=== PATIENT | female | born 1990 | race Caucasian/White ===

== ENCOUNTER 2020-03-24 18:10 | Observation (INO) | payer BC, SELFPAY ==
[2020-03-24 18:12] VITALS: BP 158/97; PULSE 77; RESP 19; TEMP 37.6; O2SAT 100; BMI 22.6
--- NOTE | 2020-03-24 18:54 | CT_ITS ---
PROCEDURE: CT ABDOMEN PELVIS WO CON CLINICAL INDICATION: abdominal pain, hx pancreatitis / pyelo Left flank pain with nausea vomiting and hematuria COMPARISON: No exams were available for comparison TECHNIQUE: Axial images obtained with sagittal and coronal reformats. All CT scans at the facility use one or more dose reduction, viz: automated exposure control, ma/kV adjustment per patient size (including targeted exams where dose is matched to indication, i.e. head), or iterative reconstruction technique. FINDINGS: LOWER THORAX: No acute finding ABDOMEN & PELVIS: Status post cholecystectomy. The liver, spleen, adrenal glands, and pancreas have an unremarkable appearance. No renal or ureteral calculi. There is mild prominence of the renal pelves on both sides. This is slightly greater on the right. There is a small supraumbilical hernia containing fat. Prior appendectomy. Nonspecific mild thickening of the urinary bladder wall. Prior hysterectomy. There is mild thickening versus nondistention of the transverse and descending colon and sigmoid colon. No significant free fluid. No acute bony findings. IMPRESSION: 1. Mild wall thickening of the distal transverse and descending and sigmoid colon. This could be due to nondistention or colitis. 2. There is mild urinary bladder wall thickening which may be seen with incomplete distension, chronic outflow obstruction, or cystitis.. 3. Small supraumbilical hernia containing fat Dictated by: Go Reyna MD 03/25/2020 06:34 Go Reyna MD in [place] 03/25/2020 06:34
--- NOTE | 2020-03-24 18:57 | HMH.EDGENADL ---
ED Disposition Condition on Discharge: Good - Critical Care Critical Care Time: No <Domenica Osman - Last Filed: 03/24/20 20:03> <Taz Soria - Last Filed: 03/24/20 20:31> Clinical Impression: Colitis, Neurogenic bladder Abdominal pain Qualifiers: Abdominal location: left lower quadrant Qualified Code(s): R10.32 - Left lower quadrant pain Disposition: Admitted as Observation Instructions: DI for Acute Abdomen Referrals: Provider,Referral, MD [Primary Care Provider] - Attestation: On 03/24/20, the high probability of a clinically significant, sudden or life threatening deterioration of the following system(s) required my full and direct attention, intervention and personal management. The time I documented below is in addition to time spent performing reported procedures but includes the following listed in this critical care notation. Medical Decision Making - Casey Inquiry Pt receiving controlled substance: No - Lab Data Result diagrams: 03/24/20 19:08 03/24/20 19:08 <Domenica Osman - Last Filed: 03/24/20 20:03> - Lab Data Lab results reviewed: Yes: I reviewed the patient's lab results. Result diagrams: 03/24/20 19:08 03/24/20 19:08 - CT Data CT Scan: Abdomen, Pelvis Time Received: 20:[address] Reviewed: Yes: I have viewed the radiologist's interpretation Preliminary Findings: Abnormal (colitis ) <Taz Soria - Last Filed: 03/24/20 20:31> Vital Signs: 03/24/20 18:12 Temperature 99.6 F Temperature Source Oral Pulse Rate [Left Radial] 77 Respiratory Rate 19 Blood Pressure [Right Arm] 158/97 H Blood Pressure Mean [Right Arm] 117 Blood Pressure Source [Right Arm] Automatic Cuff Blood Pressure Position [Right Arm] Sitting 02 Sat by Pulse Oximetry 100 Oxygen Delivery Method Room Air - Lab Data Lab Results 03/24/20 19:00: Urine Color Lizz, Urine Appearance Turbid, Urine pH 8.5, Ur Specific [place] 1.015, Urine Protein 2+, Urine Glucose (UA) Negative, Urine Ketones Negative, Urine Blood 3+, Urine Nitrate Negative, Urine Bilirubin Negative, Urine Urobilinogen 0.2, Ur Leukocyte Esterase Negative, Urine RBC Tntc, Urine WBC Occasional, Ur Squamous Epith Cells 3-5, Urine Bacteria 2+ 09/22/20 19:08: WBC 11.6 H, RBC 3.97 L, Hgb 11.4 L, Hct 34.3 L, MCV 86.3, MCH 28.6, MCHC 33.1, RDW 16.4, Plt Count 381, MPV 8.0, Neut % (Auto) 90.2 H, Lymph % (Auto) 8.0 L, [place] % (Auto) 1.0 L, Eos % (Auto) 0.6, Baso % (Auto) 0.2, Neut # (Auto) 10.4 H, Lymph # (Auto) 0.9, [place] # (Auto) 0.1, Eos # (Auto) 0.1, Baso # (Auto) 0.0, Total Counted 100, Neutrophils % (Manual) 92 H, Lymphocytes % (Manual) 7 L, Monocytes % (Manual) 1 L, Platelet Estimate Normal, RBC Morphology Normal 03/24/20 19:08: Sodium 141, Potassium 3.9, Chloride 107, Carbon Dioxide 18 L, Anion Gap 19.9 H, BUN 10, Creatinine 0.70, Estimated Creat Clear 118, Estimated GFR 98, Est GFR ( Amer) 119, Glucose 159 H, Calcium 9.8, Total Bilirubin 0.4, AST 55 H, ALT 62, Alkaline Phosphatase 74, Total Protein 7.7, Albumin 4.5, Globulin 3.2, Albumin/Globulin Ratio 1.4, Lipase 234 03/24/20 19:08: Serum HCG, Qual Negative Orders (Tests/Meds): ED MEDICATIONS Generic Name Dose Route Start Last Admin Trade Name [place] PRN Reason Stop Dose Admin Lactated Ringer's 1,000 mls @ 999 mls/hr 03/24/20 18:45 03/24/20 19:09 Lactated Ringer's 1000 Ml Bag IV 03/24/20 19:45 999 mls/hr .Q1H1M GERARDO Administration Levofloxacin/Dextrose 500 mg in 100 mls @ 100 mls/hr 03/24/20 20:30 Levaquin 500mg/100ml Premix IV 04/07/20 20:29 Q24H GERARDO Protocol Metronidazole 500 mg in 100 mls @ 100 mls/hr 03/24/20 20:30 Flagyl 500mg/100ml Ivpb IV 04/07/20 20:29 Q8H GERARDO Protocol Discontinued Medications Generic Name Dose Route Start Last Admin Trade Name Freq PRN Reason Stop Dose Admin Hydromorphone HCl 1 mg 03/24/20 20:22 Dilaudid 2mg/Ml Syringe IV 03/24/20 20:23 ONCE ONE Levofloxacin 500 mg 03/24/20 20:20
[2020-03-24 19:08] LABS: Microscopic, Urine URINE MICROSCOPIC (MICROSCOPIC)
[2020-03-24 19:10] LABS: Appearance,Urine TURBID (Clear); Bilirubin,Urine Negative (Negative); Blood, Urine 3+ (Negative); Color,Urine AMBER (Yellow); Glucose,Urine (UA) Negative (Negative); Ketones,Urine Negative (Negative); Leukocyte Esterase,Urine Negative (Negative); Nitrate,Urine Negative (Negative); PH,Urine 8.5 (5.0-8.5); Protein,Urine 2+ (Negative); Specific Gravity, Urine 1.015 (1.005-1.030); Urobilinogen,Urine 0.2 EU/dl (0.2)
[2020-03-24 19:19] LABS: Basophils % 0.2 % (0.1-2.0); Eosinophils # 0.1 K/mm3 (0.0-0.4); Eosinophils % 0.6 % (0.1-12.0); Hematocrit 34.3 % (37.0-47.0); Hemoglobin 11.4 g/dL (12.2-16.2); Lymphocytes # 0.9 K/mm3 (0.7-4.5); Mean Corpuscular HGB Conc 33.1 g/dL (31.8-35.4); Mean Corpuscular Hemoglobin 28.6 pg (27.0-31.2); Mean Corpuscular Volume 86.3 fl (81-99); Monocytes # 0.1 K/mm3 (0.1-1.0); Neutrophils # 10.4 K/mm3 (1.8-7.8); Neutrophils % 90.2 % (37.0-80.0); Platelet Count 381 K/mm3 (142-424); Red Blood Count 3.97 M/mm3 (4.20-5.40); Red Cell Distribution Width 16.4 % (11.5-17.5); White Blood Count 11.6 K/mm3 (4.8-10.8)
[2020-03-24 19:22] LABS: MANUAL DIFFERENTIAL MANUAL DIFFERENTIAL (MANUAL DIFF)
[2020-03-24 19:27] LABS: Chloride 107 mmol/L (98-107); Potassium 3.9 mmoL/L (3.5-5.1); Sodium 141 mmol/L (136-145)
[2020-03-24 19:27] LABS: Bacteria,Urine 2+ /lpf; RBC,Urine TNTC #/hpf (0-3); WBC,Urine Occasional #/hpf (0-3)
[2020-03-24 19:29] LABS: Alanine Aminotransferase 62 U/L (12-78); Aspartate Amino Transferase 55 U/L (14-36); Blood Urea Nitrogen 10 mg/dl (7-17); Creatinine Clearance Estimated 118 mL/min (50-200); Estimated Glomerular Filt Rate 98 ml/min (>60); GFR (African American) 119 ML/MIN (>60)
[2020-03-24 19:30] LABS: Albumin Level 4.5 g/dl (3.5-5.0); Albumin/Globulin Ratio 1.4 (1.1-1.8); Alkaline Phosphatase 74 U/L (38-126); Anion Gap 19.9 mEq/L (5-15); Bilirubin,Total 0.4 mg/dl (0.2-1.3); Calcium 9.8 mg/dl (8.4-10.2); Carbon Dioxide 18 mmol/L (22.0-30.0); Globulin 3.2 g/dL (1.3-3.2); Glucose 159 mg/dl (74-100); Lipase 234 U/L (23-300); Total Protein,Serum 7.7 g/dl (6.3-8.2)
[2020-03-24 19:41] LABS: Lymphocytes % 7 % (10-50); Monocytes % 1 % (2-9); Neutrophils % 92 % (42-76); Platelet Estimate Normal; RBC Morphology Normal; Total Cells Counted 100
[2020-03-24 20:12] LABS: HCG Qualitative, Serum Negative (Negative)
[2020-03-24 20:27] LABS: C-Reactive Protein 6.3 mg/L (0-4)
[2020-03-24 20:40] LABS: Erythrocyte Sedimentation Rate 18 mm/hr (0-20)
[2020-03-24 20:59] LABS: Coronavirus 19 IgG Antibody Negative (Negative); Coronavirus 19 IgM Antibody Negative (Negative)
--- NOTE | 2020-03-24 21:53 | PC.NURSE ---
PT ARRIVED TO THE FLOOR VIA W/C FROM ED W/STAFF AT 2554
[2020-03-24 21:54] VITALS: BP 145/91; PULSE 82; RESP 16; TEMP 37.2; O2SAT 99
[2020-03-24 22:23] VITALS: BP 123/87; PULSE 87; RESP 19; TEMP 37.3; O2SAT 96; BMI 28.5
--- NOTE | 2020-03-25 01:30 | PC.NURSE ---
UPON ADMISSION PT HAS HAD C/O LUQ ABDOMINAL PAIN THAT RADIATES TO BACK AND NAUSEA. MEDICATED PT PER AUG WITH PAIN MEDICATION PT REPORTED TOLERABLE PAIN RELIEF FOR A BRIEF PERIOD BUT PAIN IS COMING BACK. PT REQUESTED ADDITIONAL PAIN MEDICATION BUT REFUSED ANY PO MEDICATIONS R/T NAUSEA. ALSO MEDICATED PT WITH ZOFRAN PER AUG AND PT REPORTED RELIEF OF NAUSEA FOR A BRIEF PERIOD BUT IT'S STARTING TO COME BACK. NOTIFIED GRINDER SET UP OPERATOR SURFACE MD OF COMPLAINTS AND REQUESTS FOR ADDITIONAL MEDICATIONS FOR RELIEF, MD GAVE NO NEW ORDERS. ABDOMEN NONDISTENDED, HYPERACTIVE BOWEL SOUNDS AUSCULTATED, TENDERNESS NOTED PER PALPATION OF ABDOMINAL QUADS. UNWITTNESSED EMESIS REPORTED PER PT. PT HAS OWN SUPPLIES AT BEDSIDE FOR SELF CATHETERIZATION, PROVIDED WITH WIPES FOR CLEANING PRIOR TO CATHETERIZATION. CARE TRANSFERRED TO Darcy PRICE RN AT 0130. VSS. WILL CONTINUE TO MONITOR.
[2020-03-25 04:00] VITALS: BP 113/71; PULSE 85; RESP 18; TEMP 36.9; O2SAT 97
[2020-03-25 05:00] VITALS: BMI 28.5
--- NOTE | 2020-03-25 05:23 | PC.NURSE ---
0300 pt rang out for pain meds, is still complaining of nausea, pt stated concerns that her plan of care is ineffective, states that her whole point in her staying was to get in control of pain and nausea and be able to take her PO medications and she feels like the nausea isn't being taken care of with zofran, pt stated she wanted phenergan, labor conciliator notified, no new orders received, Neris, RN at bedside with this nurse, talked to pt about getting the pain meds, trying to rest the rest of the night and talking to dr in the morning, pt satisfied with conversation and resting in bed after conversation
--- NOTE | 2020-03-25 05:29 | PC.NURSE ---
shift summary, no acute changes since prior nurse's assessment, pt has rested in bed t/o rest of shift, did self cath one time with 150 mL of urine, pt states urine is dark yellow and cloudy but dumped it before showing to this nurse, pt stated that the nausea was better and was able to keep Keppra down, remains at bedside,
[2020-03-25 07:05] LABS: Basophils % 0.1 % (0.1-2.0); Eosinophils # 0.1 K/mm3 (0.0-0.4); Eosinophils % 0.7 % (0.1-12.0); Hematocrit 32.8 % (37.0-47.0); Hemoglobin 10.6 g/dL (12.2-16.2); Lymphocytes # 1.3 K/mm3 (0.7-4.5); Lymphocytes % 11.5 % (10-50); Mean Corpuscular HGB Conc 32.4 g/dL (31.8-35.4); Mean Corpuscular Hemoglobin 28.9 pg (27.0-31.2); Mean Corpuscular Volume 89.2 fl (81-99); Mean Platelet Volume 7.9 fl (7.4-10.4); Monocytes # 0.2 K/mm3 (0.1-1.0); Monocytes % 2.1 % (1.7-9.3); Neutrophils # 9.4 K/mm3 (1.8-7.8); Neutrophils % 85.6 % (37.0-80.0); Platelet Count 336 K/mm3 (142-424); Red Blood Count 3.68 M/mm3 (4.20-5.40); Red Cell Distribution Width 16.4 % (11.5-17.5)
[2020-03-25 07:09] LABS: MANUAL DIFFERENTIAL MANUAL DIFFERENTIAL (MANUAL DIFF)
--- NOTE | 2020-03-25 07:10 | PC.NURSE ---
pt states she has had 2 episodes of diarrhea at 0615, hat placed in bathroom with specimen cup, contact enteric precaution sign placed on door
[2020-03-25 07:11] LABS: Chloride 105 mmol/L (98-107)
[2020-03-25 07:12] LABS: Potassium 4.3 mmoL/L (3.5-5.1); Sodium 140 mmol/L (136-145)
[2020-03-25 07:15] LABS: Anion Gap 15.3 mEq/L (5-15); Blood Urea Nitrogen 9 mg/dl (7-17); Calcium 9.2 mg/dl (8.4-10.2); Carbon Dioxide 24 mmol/L (22.0-30.0); Creatinine Clearance Estimated 196 mL/min (50-200); Estimated Glomerular Filt Rate 117 ml/min (>60); GFR (African American) 142 ML/MIN (>60); Glucose 170 mg/dl (74-100)
[2020-03-25 08:00] VITALS: BP 119/76; PULSE 81; RESP 18; TEMP 36.7; O2SAT 98
[2020-03-25 08:15] LABS: Lymphocytes % 8 % (10-50); Monocytes % 4 % (2-9); Neutrophils % 85 % (42-76); Platelet Estimate Normal; RBC Morphology Normal; Total Cells Counted 100
--- NOTE | 2020-03-25 08:16 | HMH.PHAVTE ---
[facility] Pharmacy VTE Monitoring - Patient Demographics Admission date: 03/25/20 Report Date: 03/25/20 Time: 08:16 Allergies/Adverse Reactions: Patient Allergies acetaminophen [From Tylenol-Codeine #3] Allergy (Severe, Verified 03/24/20 23:47) Anaphylaxis codeine [From Tylenol-Codeine #3] Allergy (Severe, Verified 03/24/20 23:47) Anaphylaxis dicyclomine [From Bentyl] Allergy (Severe, Verified 03/24/20 23:47) Anaphylaxis NSAIDS (Non-Steroidal Anti-Inflamma Allergy (Severe, Verified 03/24/20 23:47) Anaphylaxis vancomycin Allergy (Severe, Verified 03/24/20 23:47) Anaphylaxis Iodinated Contrast Media Allergy (Mild, Verified 03/24/20 23:47) metoclopramide [From Reglan] Adverse Reaction (Mild, Verified 03/24/20 23:47) Irritable prochlorperazine [From Compazine] Adverse Reaction (Mild, Verified 03/24/20 23:47) Irritable coconut oil Adverse Reaction (Verified 03/24/20 23:47) Anaphylaxis ketorolac [From Toradol] Adverse Reaction (Verified 03/24/20 23:47) Anaphylaxis Height: 1.78 m Weight: 90.463 kg Patient Problems: Current Active Problems Abdominal pain (Acute) Colitis (Acute) Neurogenic bladder (Acute) - VTE Risk Labs: VTE Related Lab Results Hgb 10.6 g/dL (12.2-16.2) L 03/25/20 06:47 Hct 32.8 % (37.0-47.0) L 03/25/20 06:47 Plt Count 336 K/mm3 (142-424) 03/25/20 06:47 BUN 9 mg/dl (7-17) 03/25/20 06:47 Creatinine 0.60 mg/dl (0.52-1.04) 03/25/20 06:47 Estimated Creat Clear 196 mL/min (50-200) 03/25/20 06:47 Was VTE Risk Assessment Performed: Yes VTE Score: 0 VTE Risk Level: Very Low Risk Clinical Trial Participant: No - Prophylaxis VTE Prophylaxis Ordered?: Yes Types of VTE Prophylaxis: TEDS Knee High
--- NOTE | 2020-03-25 09:33 | PC.NURSE ---
late entry: stool specimen obtained @ 0845 and sent to lab
--- NOTE | 2020-03-25 10:42 | HMH.PHAINT ---
HOME MEDICATION RECONCILIATION COMPLETED USING LIST FROM [facility].
[2020-03-25 16:00] VITALS: BP 108/64; PULSE 68; RESP 16; TEMP 36.8; O2SAT 99
[2020-03-25 16:39] LABS: Adenovirus F 40/41, stool Not Detected (NotDetected); Astrovirus Not Detected (NotDetected); Campylobacter Not Detected (NotDetected); Cryptosporidium Not Detected (NotDetected); Cyclospora Cayetanesis Not Detected (NotDetected); Entamoeba histolytica Not Detected (NotDetected); Enteroaggregative E coli Not Detected (NotDetected); Enteropathogenic E coli Not Detected (NotDetected); Enterotoxigenic E coli Not Detected (NotDetected); Giardia lamblia Not Detected (NotDetected); Norovirus Not Detected (NotDetected); Plesimonas Shigalloides, PCR Not Detected (NotDetected); Rotavirus A Not Detected (NotDetected); Salmonella, PCR Not Detected (NotDetected); Sapovirus Not Detected (NotDetected); Shiga-like toxin E coli Not Detected (NotDetected); Shigella Enterovasive E coli Not Detected (NotDetected); Vibrio Cholerae Not Detected (NotDetected); Vibrio, PCR Not Detected (NotDetected); Yersinia Entercolitica, PCR Not Detected (NotDetected)
--- NOTE | 2020-03-25 18:18 | HMH.HPDC ---
General - General Admission date:: 03/24/20 Discharge date: 03/25/20 *Admission Date: 03/25/20 *Chief complaint: abd pain *History of present illness: 29 yr old male who presents to the ED with LLQ/epigastric and left flank pain. She states this has been going on for 1-2 days with hematuria and N/V. No fevers, chest pain or shortness of breath. Pt reports she had kidney stones in the past and says this feels similar.Pt reports a history of pancreatitis, pyelonephritis, neurogenic bladder after hysterectomy due to cervical/endometrial cancer. Pt admitted for evaluation for colitis. [facility] History I have reviewed the patient's past medical history: Yes Medical History: Reports:: MRSA (Heart.) Denies:: Cancer, Diabetes Mellitus Type 1, Diabetes Mellitus Type 2 *Have you ever received a pneumonia vaccine?: No *Have you received a flu vaccine this season?: No Laterality Cases: Right: Other Other Surgeries: Yes: Appendectomy, Cholecystectomy, Hernia Repair (Hernia mesh repair.), Hysterectomy-Total, Other (3 L rotator cuff repairs, right knee ACLS repair..) Amputation: No Fractures: No - *Social History Last grade of school completed: Some college Smoking Status: Former smoker Tobacco Type: e-cigarettes # Packs/Day (cigarettes): 1 Alcohol Intake: never Alcohol Intake Frequency:: holidays/special occasions only *Occupational Status:: unemployed *Travel in the last 8 weeks: None Family Hx:: Cancer, Diabetes, Heart Attack, Hyperlipidemia, Hypertension, Thyroid Disorder Review of Systems - Review of Systems Review of systems:: pertinent systems reviewed and negative unless documented below - Constitutional Reports fatigue, Reports weakness, Denies body ache(s), Denies fever(s) - Eyes Denies blurry vision - ENT Denies bleeding gums, Denies sinus pain - *Cardiovascular Denies chest pain at rest - *Respiratory Denies chest congestion, Denies coughing up blood - *Gastrointestinal Reports abdominal pain, Reports cramping, Reports nausea, Reports vomiting, Denies loose stools - *Genitourinary Denies difficulty urinating, Denies urinary incontinence, Denies urinary urgency - *Musculoskeletal Denies joint pain - Integumentary/Breasts Denies bleeding lesions, Denies rash - *Neurologic Denies abnormal hearing, Denies headache(s) - Psychiatric Denies lack of enjoyment - Endocrine Denies excessive sweating - Hematologic/Lymphatic Denies enlarged lymph nodes - Allergic/Immunologic Denies itchy eyes Exam Vital signs and Labs for Last 24 Hours: Temp Pulse Resp BP Pulse Ox 98.3 F 68 16 108/64 L 99 03/25/20 16:00 03/25/20 16:00 03/25/20 16:00 03/25/20 16:00 03/25/20 16:00 Laboratory Results - last 24 hr 03/24/20 19:00: Urine Color Lizz, Urine Appearance Turbid, Urine pH 8.5, Ur Specific [place] 1.015, Urine Protein 2+, Urine Glucose (UA) Negative, Urine Ketones Negative, Urine Blood 3+, Urine Nitrate Negative, Urine Bilirubin Negative, Urine Urobilinogen 0.2, Ur Leukocyte Esterase Negative, Urine RBC Tntc, Urine WBC Occasional, Ur Squamous Epith Cells 3-5, Urine Bacteria 2+ 03/24/20 19:08: WBC 11.6 H, RBC 3.97 L, Hgb 11.4 L, Hct 34.3 L, MCV 86.3, MCH 28.6, MCHC 33.1, RDW 16.4, Plt Count 381, MPV 8.0, Neut % (Auto) 90.2 H, Lymph % (Auto) 8.0 L, [place] % (Auto) 1.0 L, Eos % (Auto) 0.6, Baso % (Auto) 0.2, Neut # (Auto) 10.4 H, Lymph # (Auto) 0.9, [place] # (Auto) 0.1, Eos # (Auto) 0.1, Baso # (Auto) 0.0, Total Counted 100, Neutrophils % (Manual) 92 H, Lymphocytes % (Manual) 7 L, Monocytes % (Manual) 1 L, Platelet Estimate Normal, RBC Morphology Normal 03/24/20 19:08: Sodium 141, Potassium 3.9, Chloride 107, Carbon Dioxide 18 L, Anion Gap 19.9 H, BUN 10, Creatinine 0.70, Estimated Creat Clear 118, Estimated GFR 98, Est GFR ( Amer) 119, Glucose 159 H, Calcium 9.8, Total Bilirubin 0.4, AST 55 H, ALT 62, Alkaline Phosphatase 74, Total Protein 7.7, Albumin 4.5, Globulin 3.2, Albumin/Globulin Ratio 1.4, Lipase 234
[2020-03-25 18:56] LABS: Clostridium Difficile A/B, PCR Detected (NotDetected)
--- NOTE | 2020-03-25 18:57 | INFXCTL.NOTE ---
received call from lab that pt has cdiff. Notified Dr. Soria.
== END 2020-03-25 19:02 | disposition home or self-care (01) ==
LOC: ER 20:32 → 2ND 22:50
PROVIDERS: Admitting Provider Emergency Medicine; Emergency Provider Emergency Medicine; Visit Provider Emergency Medicine
DX: R10.13 Epigastric pain (principal); R10.84 Generalized abdominal pain; K52.9 Noninfective gastroenteritis and colitis, unspecified; N31.9 Neuromuscular dysfunction of bladder, unspecified; Z79.890 Hormone replacement therapy; Z79.899 Other long term (current) drug therapy; Z88.5 Allergy status to narcotic agent; Z88.8 Allergy status to other drugs, medicaments and biological substances; Z88.1 Allergy status to other antibiotic agents
CPT/HCPCS: 36415; 74176; 80048; 80053; 81001; 83690; 84703; 85007; 85025; 85651; 86140; 86328; 87086; 87088; 87186; 87507; 96365; 96366; 96367; 96375; 99284; G0378; J1956; J2405

== ENCOUNTER 2020-03-27 16:10 | Observation (INO) | payer BC, SELFPAY ==
[2020-03-27 16:11] VITALS: BP 108/72; PULSE 97; RESP 15; TEMP 37.2; O2SAT 97; BMI 21.5
--- NOTE | 2020-03-27 16:25 | HMH.EDGENADL ---
ED Disposition Clinical Impression: C. difficile colitis, Neurogenic bladder, Addisons disease, Seizure disorder Vomiting Qualifiers: Vomiting type: unspecified Vomiting Intractability: intractable Nausea presence: with nausea Qualified Code(s): R11.2 - Nausea with vomiting, unspecified Hematuria Qualifiers: Hematuria type: unspecified type Qualified Code(s): R31.9 - Hematuria, unspecified Disposition: Admitted as Observation Condition on Discharge: [facility] - Critical Care Critical Care Time: No Attestation: On 03/27/20, the high probability of a clinically significant, sudden or life threatening deterioration of the following system(s) required my full and direct attention, intervention and personal management. The time I documented below is in addition to time spent performing reported procedures but includes the following listed in this critical care notation. Medical Decision Making - Medical Records Medical records reviewed: Yes: I reviewed the patient's medical records. MR Comment: Urine culture positive for E. coli, 20-30,000 colony count. Diarrhea panel positive for C. difficile toxin. - Casey Inquiry Pt receiving controlled substance: Yes Casey was queried for this patient: Yes Reference #:: [id number] Risks and benefits of using a controlled substance: were not discussed with pt by me Comment: 28 rxs. multiple prescribers at multiple facilities. Vital Signs: 03/27/20 16:11 03/27/20 16:34 03/27/20 19:07 Temperature 98.9 F 98.9 F Temperature Source Oral Oral Pulse Rate 104 H Pulse Rate [Left Radial] 97 H 110 H Respiratory Rate 15 20 Blood Pressure 117/80 Blood Pressure [Right Arm] 108/72 L 117/80 Blood Pressure Mean [Right Arm] 84 92 Blood Pressure Source Automatic Cuff Blood Pressure Source [Right Arm] Automatic Cuff Automatic Cuff Blood Pressure Position Sitting Blood Pressure Position [Right Arm] Sitting Sitting 02 Sat by Pulse Oximetry 97 98 Oxygen Delivery Method Room Air Room Air Room Air - Lab Data Lab results reviewed: Yes: I reviewed the patient's lab results. Lab Results 03/27/20 16:54: WBC 11.9 H, RBC 3.91 L, Hgb 11.4 L, Hct 33.9 L, MCV 86.5, MCH 29.2, MCHC 33.7, RDW 16.5, Plt Count 335, MPV 7.8, Neut % (Auto) 71.9, Lymph % (Auto) 21.3, [place] % (Auto) 5.1, Eos % (Auto) 1.0, Baso % (Auto) 0.7, Neut # (Auto) 8.5 H, Lymph # (Auto) 2.5, [place] # (Auto) 0.6, Eos # (Auto) 0.1, Baso # (Auto) 0.1 03/27/20 16:54: Sodium 139, Potassium 3.7, Chloride 103, Carbon Dioxide 26, Anion Gap 13.7, BUN 12 D, Creatinine 0.80 D, Estimated Creat Clear 110, Estimated GFR 84, Est GFR ( Amer) 102 D, Glucose 99, Calcium 9.5, Total Bilirubin 0.3, AST 28 D, ALT 35 D, Alkaline Phosphatase 70, Total Protein 7.2, Albumin 4.2, Globulin 3.0, Albumin/Globulin Ratio 1.4, Amylase 68, Lipase 157 03/27/20 16:54: SARS-CoV-2 IgG Ab (Rapid) Negative, SARS-CoV-2 IgM Ab (Rapid) Negative 03/27/20 17:39: Urine Color Yellow, Urine Appearance Cloudy, Urine pH >= 9.0 H, Ur Specific [place] 1.015, Urine Protein 2+, Urine Glucose (UA) Negative, Urine Ketones Negative, Urine Blood 3+, Urine Nitrate Negative, Urine Bilirubin Negative, Urine Urobilinogen 0.2, Ur Leukocyte Esterase Negative, Urine RBC 20-50, Urine WBC 3-5, Ur Squamous Epith Cells 3-5 03/27/20 17:39: Urine Opiates Screen Positive H, Urine Methadone Screen Negative, Ur Barbituates Screen Negative, Ur Phencyclidine Scrn Negative, Ur Amphetamines Screen Negative, U Benzodiazepines Scrn Negative, Urine Cocaine Screen Negative, U Marijuana (THC) Screen Negative Result diagrams: 03/27/20 16:54 03/27/20 16:54 Orders (Tests/Meds): ED MEDICATIONS Generic Name Dose Route Start Last Admin Trade Name Freq PRN Reason Stop Dose Admin Levetiracetam 1,000 mg/ Sodium 110 mls @ 220 mls/hr 03/27/20 21:00 Chloride IV 04/26/20 20:59 BID GERARDO Discontinued Medications Generic Name Dose Route Start Last Admin Trade Name Freq PRN Reason Stop Dose Ad
[2020-03-27 16:34] VITALS: BP 117/80; PULSE 110; O2SAT 98
[2020-03-27 17:19] LABS: Chloride 103 mmol/L (98-107); Potassium 3.7 mmoL/L (3.5-5.1); Sodium 139 mmol/L (136-145)
[2020-03-27 17:21] LABS: Amylase 68 U/L (30-110); Blood Urea Nitrogen 12 mg/dl (7-17); Creatinine Clearance Estimated 110 mL/min (50-200); Estimated Glomerular Filt Rate 84 ml/min (>60); GFR (African American) 102 ML/MIN (>60)
[2020-03-27 17:22] LABS: Alanine Aminotransferase 35 U/L (12-78); Albumin Level 4.2 g/dl (3.5-5.0); Albumin/Globulin Ratio 1.4 (1.1-1.8); Alkaline Phosphatase 70 U/L (38-126); Anion Gap 13.7 mEq/L (5-15); Aspartate Amino Transferase 28 U/L (14-36); Bilirubin,Total 0.3 mg/dl (0.2-1.3); Calcium 9.5 mg/dl (8.4-10.2); Carbon Dioxide 26 mmol/L (22.0-30.0); Glucose 99 mg/dl (74-100); Lipase 157 U/L (23-300); Total Protein,Serum 7.2 g/dl (6.3-8.2)
[2020-03-27 17:44] LABS: Microscopic, Urine URINE MICROSCOPIC (MICROSCOPIC)
[2020-03-27 17:45] LABS: Appearance,Urine CLOUDY (Clear); Bilirubin,Urine Negative (Negative); Blood, Urine 3+ (Negative); Color,Urine YELLOW (Yellow); Glucose,Urine (UA) Negative (Negative); Ketones,Urine Negative (Negative); Leukocyte Esterase,Urine Negative (Negative); Nitrate,Urine Negative (Negative); PH,Urine >= 9.0 (5.0-8.5); Protein,Urine 2+ (Negative); Specific Gravity, Urine 1.015 (1.005-1.030); Urobilinogen,Urine 0.2 EU/dl (0.2)
[2020-03-27 17:46] LABS: RBC,Urine 20-50 #/hpf (0-3)
[2020-03-27 17:49] LABS: Basophils # 0.1 K/mm3 (0-0.2); Basophils % 0.7 % (0.1-2.0); Eosinophils # 0.1 K/mm3 (0.0-0.4); Hematocrit 33.9 % (37.0-47.0); Hemoglobin 11.4 g/dL (12.2-16.2); Lymphocytes # 2.5 K/mm3 (0.7-4.5); Lymphocytes % 21.3 % (10-50); Mean Corpuscular HGB Conc 33.7 g/dL (31.8-35.4); Mean Corpuscular Hemoglobin 29.2 pg (27.0-31.2); Mean Corpuscular Volume 86.5 fl (81-99); Mean Platelet Volume 7.8 fl (7.4-10.4); Monocytes # 0.6 K/mm3 (0.1-1.0); Monocytes % 5.1 % (1.7-9.3); Neutrophils # 8.5 K/mm3 (1.8-7.8); Neutrophils % 71.9 % (37.0-80.0); Platelet Count 335 K/mm3 (142-424); Red Blood Count 3.91 M/mm3 (4.20-5.40); Red Cell Distribution Width 16.5 % (11.5-17.5); White Blood Count 11.9 K/mm3 (4.8-10.8)
--- NOTE | 2020-03-27 18:47 | PC.NURSE ---
ISSA PATTERSON spoke with Dr. Carr who is retirement consultant for service pts.
--- NOTE | 2020-03-27 18:49 | PC.NURSE ---
notified warehouse and receiving supervisor of admission
[2020-03-27 19:07] VITALS: BP 117/80; PULSE 104; RESP 20; TEMP 37.2; O2SAT 99
[2020-03-27 19:11] LABS: Amphetamine/Metha Screen,Urine Negative ng/ml (<1000)
[2020-03-27 19:12] LABS: Barbiturates Screen,Urine Negative ng/ml (<200)
[2020-03-27 19:13] LABS: Benzodiazepines Screen,Urine Negative ng/ml (<200); Cannabinoid Screen,Urine Negative ng/ml (<50)
[2020-03-27 19:14] LABS: Cocaine Screen,Urine Negative ng/ml (<300)
[2020-03-27 19:15] LABS: Methadone Screen,Urine Negative ng/ml (<300); Opiate Screen,Urine Positive ng/ml (<300)
[2020-03-27 19:16] LABS: Phencyclidine Screen,Urine Negative ng/ml (<25)
[2020-03-27 19:46] LABS: Coronavirus 19 IgG Antibody Negative (Negative); Coronavirus 19 IgM Antibody Negative (Negative)
--- NOTE | 2020-03-27 19:48 | PC.NURSE ---
Notified 2nd floor patient's IgG/IgM was back and she was ready to come to the floor.
[2020-03-27 20:03] VITALS: BP 115/77; PULSE 108; RESP 18; TEMP 36.9; O2SAT 97; BMI 28.9
--- NOTE | 2020-03-27 20:03 | PC.NURSE ---
Addendum entered by Ashley Saenz CNA 03/28/20 07:29: CORRECTION- PT ARRIVED TO THE FLOOR VIA W/C FROM ED WITH STAFF AT 1958 Original Note: PT ARRIVED TO THE FLOOR VIA W/C FROM ED W/STAFF FROM ED AT 1958
--- NOTE | 2020-03-27 22:47 | PC.NURSE ---
MD Carr notified per pt request. Pt states that zofran and phenergan doesn't work for nausea. Requesting to have benedryl. Pt also requested to have IV medication instead of PO medication. Pt requests for morphine 4 mg IV Q4 to be changed to morphine 2 mg Q2 hrs. MD Carr notified of pt requests. New orders: Benedryl 12.5 mg IV Q6 prn. DC Phenergan and DC Zofran.
[2020-03-28 04:00] VITALS: BP 108/67; PULSE 88; RESP 18; TEMP 36.6; O2SAT 97
--- NOTE | 2020-03-28 04:16 | PC.NURSE ---
Pt c/o N/V at 0200 shortly after taking morphine. When this nurse went into room. Pt was in BR over toilet accompanied by lucia. Lucia stated to this nurse, Can't you give her some zofran or phenergan? This nurse educated pt and shandafriend that pt stated the zofran and phenergan wasn't working earlier and that it was pt's request to have benedryl for nausea and that MD was contacted. Benedryl was ordered and zofran and phenergan was DC. This nurse asked pt if she would like a cold washcloth and lucia immediately stated, I already asked her. This nurse left room and brought back washcloths and extra emesis bags. Pt was in bed at that time. Cold wash cloth was placed on pt's head. Lights were lowered in room for comfort. This nurse told pt that I would be back in to check on her to see how she is doing. Call light at bedside. This nurse left room. Five minutes later, this nurse received a call transferred from hat forming machine operator from the lucia. Lucia wanted to speak with charge nurse. This nurse being charge nurse asked for House to also come to room. Lucia stated firmly that they were not happy with care and that they wanted something done about pt's nausea. MD was notified. Zofran 4 mg IV ordered. Zofran obtained from [facility]. After entering pt's room, this nurse told pt that I had an order for zofran. Pt then stated that she had zofran in ER 3x and that it didn't work. She wasn't going to take it. Then lucia stated, why can't she just have more benedryl. House was called back into room to help find resolution. Pt and lucia again stated their complaints. Pt also stated that she made a mistake in trying to plan her own care out thinking that the benedryl would have worked and that she made a mistake. She also stated that she didn't mean that the phenergan didn't work. Pt decided that she was going to wait until next dose of benedryl and then would take morphine after. VSS. Will continue to monitor.
[2020-03-28 05:18] VITALS: BMI 29.1
[2020-03-28 08:00] VITALS: BP 116/74; PULSE 85; RESP 19; RESP 20; TEMP 36.7; O2SAT 99
--- NOTE | 2020-03-28 08:44 | HMH.HPDC ---
General - General Admission date:: 03/27/20 Discharge date: 03/28/20 *Admission Date: 03/27/20 *Chief complaint: Vomiting and abdominal pain *History of present illness: Patient complains of left-sided abdominal pain, vomiting, diarrhea. She was admitted to this hospital 03/23/2020 for the same symptoms. She has been diagnosed with colitis. She was discharged on Levaquin and Flagyl and [place]. She says that she was also told she had a kidney infection and could not rule out a kidney stone because she has prior history of uric acid stones that do not show up on CT scan. She says that when she was in the hospital she was only taking ice chips and clear liquids, which she was able to tolerate. However, she says that they did not try to advance her diet and after she went home she has not been able to hold down anything. She tried again to only take ice chips and clear liquids but has not been able to hold those down either. She tried taking leftover Zofran before taking her medications and still has not been able to keep her medicines down, including her seizure medication, Keppra. She says she has a primary care doctor in [place] and has an appointment to see him on Monday but cannot wait until then. She has had previous cervical and uterine cancer, status post extra ectomy, cholecystectomy, appendectomy. She has Simpson's disease. Her last dose of steroids was the day of discharge, 2 days ago. She has a seizure disorder. She has Crohn's disease. She has a neurogenic bladder. Above note per emergency room doctor. Patient sees Dr. Grace in [place], has an appointment on Monday, but came back to the emergency department because of the above-noted problems. While she was here last week had significant issues with symptom control such as pain, nausea issues. Has a host of comorbidities as noted above that require-according to the patient-high dose of pain medication and antiemetic medication. Fragmented medical records. [facility] report is concerning for multiple different providers with pain medication. 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, MRSA Denies:: Diabetes Mellitus Type 1, Diabetes Mellitus Type 2 *Have you ever received a pneumonia vaccine?: No *Have you received a flu vaccine this season?: Yes Other Medical History: Reports: Arthritis, Hormone Therapy Laterality Cases: Right: ACL Repair, Other Other Surgeries: Yes: Appendectomy, Cholecystectomy, Colonoscopy, Dilation and Curettage, EGD, Hernia Repair (Hernia mesh repair.), Hysterectomy-Total, Skin Cancer Excision, Ureter Stent, Other (3 L rotator cuff repairs, right knee ACLS repair..) Amputation: No Fractures: No - *Social History Last grade of school completed: Some college Smoking Status: Former smoker Tobacco Type: cigarettes # Packs/Day (cigarettes): 1 #Yrs smoked (if former smoker): 3 Alcohol Intake: current Alcohol Intake Frequency:: holidays/special occasions only *Occupational Status:: unemployed Housing: house Household Members: significant other, children *Travel in the last 8 weeks: None Comment: Lives with significant other/, recently moved to [place]. Family Hx:: Asthma, Cancer, Diabetes, Heart Attack, Hyperlipidemia, Hypertension, Kidney Disease, Stroke, Thyroid Disorder Review of Systems - Review of Systems Review of systems:: pertinent systems reviewed and negative unless documented below Almost a lay positive review of systems. Denies cardiac or pulmonary issues but in regards to GI, headaches, random pains, nausea issues strongly positive review of systems. Exam Vital signs and Labs for Last 24 Hours: Temp Pulse Resp BP Pulse Ox 98.0 F 85 19 116/74 99 03/28/20 08:00 03/28/20 08:00 03/28/20 08:00 03/28/20 08:00 03/28/20 08:00 Laboratory Results - last 24 hr 03/27/20 16:54: WBC 11.9 H, RBC 3.91 L, Hgb 11.4 L, Hct 33.9 L, MCV 86.5, MCH 29.2, MCHC 33
--- NOTE | 2020-03-28 08:49 | PC.NURSE ---
during shift report pt and stated pt had a seizure about 0720. is aware.
--- NOTE | 2020-03-28 09:11 | HMH.PHAVTE ---
[facility] Pharmacy VTE Monitoring - Patient Demographics Admission date: 03/27/20 Report Date: 03/28/20 Time: 09:11 Allergies/Adverse Reactions: Patient Allergies acetaminophen [From Tylenol-Codeine #3] Allergy (Severe, Verified 03/24/20 23:47) Anaphylaxis codeine [From Tylenol-Codeine #3] Allergy (Severe, Verified 03/24/20 23:47) Anaphylaxis dicyclomine [From Bentyl] Allergy (Severe, Verified 03/24/20 23:47) Anaphylaxis NSAIDS (Non-Steroidal Anti-Inflamma Allergy (Severe, Verified 03/24/20 23:47) Anaphylaxis vancomycin Allergy (Severe, Verified 03/24/20 23:47) Anaphylaxis Iodinated Contrast Media Allergy (Mild, Verified 03/24/20 23:47) metoclopramide [From Reglan] Adverse Reaction (Mild, Verified 03/24/20 23:47) Irritable prochlorperazine [From Compazine] Adverse Reaction (Mild, Verified 03/24/20 23:47) Irritable coconut oil Adverse Reaction (Verified 03/24/20 23:47) Anaphylaxis ketorolac [From Toradol] Adverse Reaction (Verified 03/24/20 23:47) Anaphylaxis Height: 1.78 m Weight: 92.334 kg Patient Problems: Current Active Problems Neurogenic bladder (Acute) C. difficile colitis (Acute) Vomiting (Acute) Hematuria (Acute) Addisons disease (Acute) Seizure disorder (Acute) - VTE Risk Labs: VTE Related Lab Results Hgb 11.4 g/dL (12.2-16.2) L 03/27/20 16:54 Hct 33.9 % (37.0-47.0) L 03/27/20 16:54 Plt Count 335 K/mm3 (142-424) 03/27/20 16:54 BUN 12 mg/dl (7-17) D 03/27/20 16:54 Creatinine 0.80 mg/dl (0.52-1.04) D 03/27/20 16:54 Estimated Creat Clear 110 mL/min (50-200) 03/27/20 16:54 VTE Score: 10 VTE Risk Level: Moderate Risk - Prophylaxis VTE Prophylaxis Ordered?: Yes Types of VTE Prophylaxis: TEDS Knee High Location of Applied Device: Bilateral Lower Extremeties
== END 2020-03-28 10:00 | disposition home or self-care (01) ==
LOC: ER 18:35 → 2ND 20:02
PROVIDERS: Admitting Provider Internal Medicine Adolescent Medicine; Emergency Provider Emergency Medicine; PCP Internal Medicine Adolescent Medicine; Visit Provider Internal Medicine Adolescent Medicine
DX: A04.72 Enterocolitis due to Clostridium difficile, not specified as recurrent (principal); E27.1 Primary adrenocortical insufficiency; N31.9 Neuromuscular dysfunction of bladder, unspecified; Z87.891 Personal history of nicotine dependence; Z79.899 Other long term (current) drug therapy; Z79.890 Hormone replacement therapy; Z88.8 Allergy status to other drugs, medicaments and biological substances
CPT/HCPCS: 80053; 80305; 81001; 82150; 83690; 85025; 86328; 96374; 96375; 96376; 99284; G0378; J1953; J2405

== ENCOUNTER 2020-04-01 15:56 | Emergency (ER) | payer BC, SELFPAY ==
[2020-04-01 15:58] VITALS: BP 108/63; PULSE 114; RESP 17; TEMP 36.4; O2SAT 98; BMI 22.9
--- NOTE | 2020-04-01 16:04 | HMH.EDGENADL ---
ED Disposition Clinical Impression: Epigastric abdominal pain Nausea & vomiting Qualifiers: Vomiting type: unspecified Vomiting Intractability: unspecified Qualified Code(s): R11.2 - Nausea with vomiting, unspecified Disposition: Home, Self-Care Condition on Discharge: Fair Instructions: DI for Acute Abdomen Referrals: Yanick Grace MD [Primary Care Provider] - Time of Disposition: 18:55 - Critical Care Critical Care Time: No Attestation: On , the high probability of a clinically significant, sudden or life threatening deterioration of the following system(s) required my full and direct attention, intervention and personal management. The time I documented below is in addition to time spent performing reported procedures but includes the following listed in this critical care notation. Medical Decision Making - Medical Records Medical records reviewed: Yes: I reviewed the patient's medical records. MR Yordy: 29-year-old female presents to the emergency department with abdominal pain, nausea, vomiting. She arrives to the ED hemodynamically stable, with reassuring vital signs, and looks well on exam. She has a significant past medical history, and has not been able to take her steroids for [place]'s disease or Keppra for seizure disorder. She is also not been able to keep all of her antibiotics down over the last couple days but has had some doses. She arrives emergency department tachycardic and is mildly tender in the epigastrium. She is not febrile and does not appear septic. I doubt toxic megacolon/severe infection. Pancreatitis is considered. This could be continuation of her colitis and her inability to keep her medications down. She does not appear toxic. Will get labs including CT and reassess. Treating with steroids and Keppra due to her not being able ot keep this medications down and because of her allergy to contrast. Also will treat with fluid bolus and reassess. Records pulled showing she has been seen at [facility] for flank pain two days ago. Multiple scattered hospital visits and prescriptions. Offered mutliple non opioid pain medications and has anaphylactic reaction to tylenol, toradol, ibuprofen, acetominophen, codeine, bentyl, etc. Is not allergic to morphine, dilaudid. Would prefer trying other non opioid medications first to treat pain especially given that CT personally reviewed and this time and no concerning acute findings, labs not actionable. On reassessment, patient is doing much better. She denies any nausea or vomiting at this time and states that Benadryl really helped her and she is willing to trial p.o. I advised that she follow closely with her PCP due to her multiple visits due to abdominal pain. Also advised that she continue antibiotics she has been prescribed to finish treatment. Her abdominal exam is entirely benign on repeat, and she is tolerating p.o. Given that she was given strict return precautions and discharge instructions including follow-up for further evaluation and treatment and verbalizes an understanding and agreement to the plan. Safe to discharge. - [facility] Inquiry Pt receiving controlled substance: No Vital Signs: 04/01/20 15:58 Temperature 97.6 F Temperature Source Oral Pulse Rate [Right] 114 H Respiratory Rate 17 Blood Pressure [Right Arm] 108/63 L Blood Pressure Mean [Right Arm] 78 02 Sat by Pulse Oximetry 98 - Lab Data Lab Results 04/01/20 16:20: WBC 13.4 H, RBC 4.22, Hgb 12.1 L, Hct 35.1 L, MCV 83.1, MCH 28.7, MCHC 34.6, RDW 16.3, Plt Count 347, MPV 7.7, Neut % (Auto) 70.1, Lymph % (Auto) 23.4, [place] % (Auto) 3.6, Eos % (Auto) 2.5, Baso % (Auto) 0.4, Neut # (Auto) 9.4 H, Lymph # (Auto) 3.1, [place] # (Auto) 0.5, Eos # (Auto) 0.3, Baso # (Auto) 0.1 04/01/20 16:20: Sodium 139, Potassium 3.9, Chloride 106, Carbon Dioxide 20 L, Anion Gap 16.9 H, BUN 14, Creatinine 0.70, Estimated Creat Clear 135, Estimated GFR 98, Est GFR ( Amer) 119, Glucose 106 H, Calciu
--- NOTE | 2020-04-01 16:13 | CT_ITS ---
PROCEDURE: CT ABDOMEN PELVIS W CON CLINICAL INDICATION: epigastric pain and TTP, hx pancreatitis and C dif EPIGASTRIC PAIN AND LEFT SIDED ABD PAIN, VOMITING COMPARISON: CT CT ABDOMEN PELVIS WO CON from 03/24/2020 TECHNIQUE: IV Contrast: 75ML OPTIRAY 350 Oral Contrast None Axial images obtained with sagittal and coronal reformats. All CT scans at the facility use one or more dose reduction, viz: automated exposure control, ma/kV adjustment per patient size (including targeted exams where dose is matched to indication, i.e. head), or iterative reconstruction technique. FINDINGS: LOWER THORAX: There is minimal pericardial thickening. ABDOMEN & PELVIS: There has been a prior cholecystectomy. The liver, spleen, adrenal glands, pancreas, and kidneys have an unremarkable appearance. There are few small retroperitoneal lymph nodes. No intestinal obstruction or free air. There is a small supraumbilical hernia containing fat. Prior appendectomy. There has been a prior hysterectomy. No acute bony findings. No abnormal fluid collections. IMPRESSION: No acute abdominal or pelvic findings. Dictated by: Go Reyna MD 04/02/2020 06:59 Go Reyna MD in [place] 04/02/2020 06:59
[2020-04-01 16:28] LABS: Basophils # 0.1 K/mm3 (0-0.2); Basophils % 0.4 % (0.1-2.0); Eosinophils # 0.3 K/mm3 (0.0-0.4); Eosinophils % 2.5 % (0.1-12.0); Hematocrit 35.1 % (37.0-47.0); Hemoglobin 12.1 g/dL (12.2-16.2); Lymphocytes # 3.1 K/mm3 (0.7-4.5); Lymphocytes % 23.4 % (10-50); Mean Corpuscular HGB Conc 34.6 g/dL (31.8-35.4); Mean Corpuscular Hemoglobin 28.7 pg (27.0-31.2); Mean Corpuscular Volume 83.1 fl (81-99); Mean Platelet Volume 7.7 fl (7.4-10.4); Monocytes # 0.5 K/mm3 (0.1-1.0); Monocytes % 3.6 % (1.7-9.3); Neutrophils # 9.4 K/mm3 (1.8-7.8); Neutrophils % 70.1 % (37.0-80.0); Platelet Count 347 K/mm3 (142-424); Red Blood Count 4.22 M/mm3 (4.20-5.40); Red Cell Distribution Width 16.3 % (11.5-17.5); White Blood Count 13.4 K/mm3 (4.8-10.8)
[2020-04-01 16:31] LABS: Microscopic, Urine URINE MICROSCOPIC (MICROSCOPIC)
[2020-04-01 16:32] LABS: Appearance,Urine SL CLOUDY (Clear); Bilirubin,Urine Negative (Negative); Blood, Urine 3+ (Negative); Color,Urine RED (Yellow); Glucose,Urine (UA) Negative (Negative); Ketones,Urine Negative (Negative); Leukocyte Esterase,Urine Negative (Negative); Nitrate,Urine POSITIVE (Negative); PH,Urine 5.5 (5.0-8.5); Protein,Urine 2+ (Negative); Specific Gravity, Urine >= 1.030 (1.005-1.030); Urobilinogen,Urine 0.2 EU/dl (0.2)
[2020-04-01 16:36] LABS: Chloride 106 mmol/L (98-107)
[2020-04-01 16:37] LABS: Potassium 3.9 mmoL/L (3.5-5.1); Sodium 139 mmol/L (136-145)
[2020-04-01 16:39] LABS: Alanine Aminotransferase 25 U/L (12-78); Amylase 65 U/L (30-110); Anion Gap 16.9 mEq/L (5-15); Aspartate Amino Transferase 23 U/L (14-36); Blood Urea Nitrogen 14 mg/dl (7-17); Carbon Dioxide 20 mmol/L (22.0-30.0); Creatinine Clearance Estimated 135 mL/min (50-200); Estimated Glomerular Filt Rate 98 ml/min (>60); GFR (African American) 119 ML/MIN (>60); RBC,Urine 20-50 #/hpf (0-3)
[2020-04-01 16:40] LABS: Albumin Level 4.1 g/dl (3.5-5.0); Albumin/Globulin Ratio 1.2 (1.1-1.8); Alkaline Phosphatase 88 U/L (38-126); Bilirubin,Total 0.5 mg/dl (0.2-1.3); Calcium 9.4 mg/dl (8.4-10.2); Globulin 3.4 g/dL (1.3-3.2); Glucose 106 mg/dl (74-100); Lipase 99 U/L (23-300); Total Protein,Serum 7.5 g/dl (6.3-8.2)
--- NOTE | 2020-04-01 19:03 | PC.NURSE ---
pt states she can take oxycodone with acetaminophen
[2020-04-01 19:23] VITALS: BP 112/72; PULSE 91; RESP 16; TEMP 36.6; O2SAT 16
== END 2020-04-01 19:26 | disposition home or self-care (01) ==
PROVIDERS: Emergency Provider Emergency Medicine; PCP Obstetrics & Gynecology
DX: K52.9 Noninfective gastroenteritis and colitis, unspecified (principal); G40.909 Epilepsy, unspecified, not intractable, without status epilepticus; E27.1 Primary adrenocortical insufficiency; N31.9 Neuromuscular dysfunction of bladder, unspecified; Z79.899 Other long term (current) drug therapy; Z87.891 Personal history of nicotine dependence; Z88.5 Allergy status to narcotic agent; Z88.8 Allergy status to other drugs, medicaments and biological substances; Z90.49 Acquired absence of other specified parts of digestive tract; Z90.710 Acquired absence of both cervix and uterus
CPT/HCPCS: 74177; 80053; 81001; 82150; 83690; 85025; 96365; 96375; 99283; J1953; J2405; Q9967